=== PATIENT | female | born 1965 | race African-American/Black ===

== ENCOUNTER → 2017-05-10 | Outpatient (CLI) | payer MEDICAID ==
--- NOTE | 2017-05-10 08:31 | RAD ---
History: Left knee pain. Osteoarthritis. Exam: Three-view series of the left knee joint demonstrates moderate to severe tricompartmental knee joint osteoarthritis, most severe in the medial knee compartment. There is no evidence for acute frac ture or lytic bony lesion. No significant knee joint effusion is seen. No intra-articular loose fatimah s or focal joint erosions are observed. No other abnormalities are identified. Impression: Moderate to severe tricompartmental left knee joint osteoarthritis. Reported By:
== END | disposition home or self-care (01) | DRG 556 ==
LOC: RAD 07:24
PROVIDERS: ATTEND Specialist
DX: M25.562 Pain in left knee (principal); M17.12 Unilateral primary osteoarthritis, left knee
CPT/HCPCS: 73564

== ENCOUNTER → 2017-05-21 | Outpatient (CLI) | payer MEDICAID ==
--- NOTE | 2017-05-21 15:09 | MRI ---
MRI left knee without contrast. Indication: Chronic left knee pain. Comparison: Radiographs 05/10/2017 Technique: Multiplanar multi sequence MR images of the left knee were obtained without contrast. Findings: There is moderate tricompartmental degenerative arthrosis, worst in the medial femorotibial compartment. There is moderate to advanced chondrosis diffusely involving the medial femorotibial co mpartment. There is small horizontal tear of the lateral meniscal body extending to the free edge (fo r example image 22, series 801). There is free edge fraying of the medial meniscus, without discrete tear. The ACL, PCL, mcl, major lateral stabilizers, and extensor mechanism are intact. There is small joint effusion. No popliteal cyst. Impression: Moderate tricompartmental degenerative disease, worst in the medial femorotibial compartment. Probably degenerative horizontal tear of the lateral meniscal body. Medial meniscal free edge fraying . Small joint effusion. Reported By:
== END ==
LOC: RAD 13:39
PROVIDERS: ATTEND Orthopaedic Surgery
DX: M23.204 Derangement of unspecified medial meniscus due to old tear or injury, left knee (principal)
CPT/HCPCS: 73721

== ENCOUNTER → 2017-06-06 | Outpatient (CLI) | payer MEDICAID ==
[2017-06-06 14:54] LABS: BILIRUBIN,URINE NEGATIVE (NEGATIVE); BLOOD/HEMOGLOBIN,URINE NEGATIVE (NEGATIVE); GLUCOSE, URINE NEGATIVE (NEGATIVE); KETONES,URINE NEGATIVE (NEGATIVE); LEUKOCYTE ESTERASE ,URINE NEGATIVE (NEGATIVE); NITRITES,URINE NEGATIVE (NEGATIVE); PROTEIN,URINE NEGATIVE (NEGATIVE); UROBILINOGEN,URINE NORMAL (NORMAL)
[2017-06-06 14:56] LABS: BASOPHILS % (AUTO) 0.4 % (0.2-1.0); EOSINOPHILS # (AUTO) 0.2 x10^3/uL (0.0-0.2); EOSINOPHILS % (AUTO) 2.8 % (0.9-2.9); HEMOGLOBIN 12.1 g/dL (12.0-16.0); LYMPHOCYTES # (AUTO) 2.4 X10^3/uL (1.3-2.9); LYMPHOCYTES % (AUTO) 43.4 % (21.0-51.0); MEAN CORPUSCULAR HEMOGLOBIN 30.7 pg (27.0-34.0); MEAN CORPUSCULAR HGB CONC 34.6 g/dL (33.0-35.0); MEAN CORPUSCULAR VOLUME 88.7 fL (80.0-100.0); MEAN PLATELET VOLUME 7.4 fL (7.4-11.0); MONOCYTES # (AUTO) 0.5 x10^3/uL (0.3-0.8); MONOCYTES % (AUTO) 8.7 % (0.0-13.0); NEUTROPHILS # (AUTO) 2.5 x10^3/uL (2.2-4.8); NEUTROPHILS % (AUTO) 44.7 % (42.0-75.0); PLATELET COUNT 298 X10^3/uL (150.0-450.0); RED BLOOD COUNT 3.95 X10^6/uL (3.5-5.4); RED CELL DISTRIBUTION WIDTH 13.3 % (11.6-16.5); WHITE BLOOD COUNT 5.5 X10^3/uL (3.6-10.0)
--- NOTE | 2017-06-06 14:57 | RAD ---
HISTORY: Preoperative exam for knee surgery Study: Two views the chest Comparison: None Findings: The patient is slightly rotated. The cardiac silhouette is unremarkable. The lungs are clear withou t focal infiltrate or effusion. The aortic knob is partially calcified. Postoperative changes of th e cervical spine are noted. IMPRESSION: 1. No acute cardiopulmonary disease. Reported By:
[2017-06-06 14:59] LABS: APPEARANCE,URINE CLEAR (CLEAR); COLOR,URINE YELLOW (YELLOW); RBC,URINE 0-2 /HPF (NEGATIVE)
[2017-06-06 15:00] LABS: BACTERIA,URINE 1+ /HPF (NEGATIVE); SQUAMOUS EPITHELIAL CELL,UR RARE /HPF (NEGATIVE)
[2017-06-06 15:11] LABS: ALANINE AMINOTRANSFERASE 25 Units/L (12-78); ALBUMIN 3.9 g/dL (3.4-5.0); ALKALINE PHOSPHATASE 85 Units/L (46-116); ASPARTATE AMINO TRANSFERASE 16 Units/L (15-37); BLOOD UREA NITROGEN 10 mg/dL (7-18); CALCIUM 9.1 mg/dL (8.5-10.1); CARBON DIOXIDE 32.7 mmol/L (21-32); CHLORIDE 103 mmol/L (98-107); CREATININE 0.95 mg/dL (0.55-1.02); SODIUM 141 mmol/L (136-145); TOTAL PROTEIN 8.2 g/dL (6.4-8.2); eGFR BLACK RACES > 60 (>60); eGFR NON BLACK RACES > 60 (>60)
[2017-06-06 16:14] LABS: ERYTHROCYTE SEDIMENTATION RATE 4 MM/HOUR (0-20)
== END ==
LOC: LAB 14:11
PROVIDERS: ATTEND Orthopaedic Surgery
DX: Z01.818 Encounter for other preprocedural examination (principal); Z79.899 Other long term (current) drug therapy; Z11.8 Encounter for screening for other infectious and parasitic diseases; Z01.811 Encounter for preprocedural respiratory examination; Z01.810 Encounter for preprocedural cardiovascular examination; M23.204 Derangement of unspecified medial meniscus due to old tear or injury, left knee
CPT/HCPCS: 36415; 71046; 80053; 81001; 85025; 85652; 86140; 87640; 87641; 93005; 93010

== ENCOUNTER 2017-06-12 07:00 | Day surgery (SDC) | payer MEDICAID ==
[2017-06-12] MEDS: D5 LR 1000 ML 1,000 ML IV ONE ×2 (07:28→08:00)
[2017-06-12] MEDS ORDERED: XYLOCAINE 1% and EPINEPHRINE 1:100,000 ONE (07:35)
[2017-06-12] MEDS ORDERED: MARCAINE 0.25% INJ ONE (07:35)
[2017-06-12] MEDS ORDERED: NS IRRIGATION 3000 ML 3,000 ML IR ONE ×4 (08:07)
[2017-06-12] MEDS: ANCEF 1 GM IV PREMIX* 1 GM/50 ML BAG IV ONE ×2 (08:07→09:04)
[2017-06-12] MEDS: BACTROBAN OINT ONE ×2 (08:10→09:42)
[2017-06-12] MEDS ORDERED: ADRENALINE CHL INJ ONE (08:11)
[2017-06-12] MEDS ORDERED: DILAUDID INJ ONE (08:35)
[2017-06-12] MEDS ORDERED: FENTANYL INJ 100 mcg ONE ×2 (08:36→09:32)
[2017-06-12] MEDS ORDERED: DECADRON INJ ONE (09:36)
[2017-06-12] MEDS ORDERED: NS 1000 ML 1,000 ML ONE (09:37)
[2017-06-12] MEDS ORDERED: NS IRRIGATION 1000 ML 1,000 ML IR ONE ×4 (10:03→10:14)
[2017-06-12] MEDS ORDERED: KENALOG INJ 40 MG IM ONE (10:21)
[2017-06-12] MEDS ORDERED: ZOFRAN INJ 4 MG VIAL IVP PRN (10:49)
[2017-06-12] MEDS ORDERED: BENADRYL INJ 50 MG VIAL IVP PRN (10:49)
[2017-06-12] MEDS ORDERED: PHENERGAN INJ 25 MG IVP PRN (10:49)
[2017-06-12] MEDS ORDERED: REGLAN INJ 10 MG VIAL IVP PRN (10:49)
[2017-06-12] MEDS ORDERED: DILAUDID INJ IVP PRN (10:49)
[2017-06-12] MEDS ORDERED: NORCO 5/325 MG TAB PO PRN (11:03)
[2017-06-12] MEDS: DILAUDID INJ ONE ×2 (11:05→11:10)
[2017-06-12 12:25] VITALS: BP 106/63
[2017-06-12] MEDS ORDERED: EPHEDRINE SULFATE INJ ONE (15:35)
[2017-06-12] MEDS ORDERED: DIPRIVAN VIAL ONE (15:35)
[2017-06-12] MEDS ORDERED: VERSED ONE (15:35)
[2017-06-12] MEDS ORDERED: SUPRANE IN ONE (15:35)
[2017-06-12] MEDS ORDERED: LTA KIT LIDOCAINE 4% ONE (15:35)
[2017-06-12] MEDS ORDERED: QUELICIN (OR ANECTINE) ONE (15:35)
[2017-06-12] MEDS ORDERED: ZOFRAN INJ 4 MG VIAL ONE (15:35)
[2017-06-12] MEDS ORDERED: XYLOCAINE 2 % (PLAIN) ONE (15:35)
--- NOTE | 2017-06-16 13:12 | OR.GENERIC ---
Post-Op Note Generic - Post-Op Note Operative Report: PREOPERATIVE DIAGNOSIS: Left knee medial and lateral meniscal tear and chondromalacia of the patella. POSTOPERATIVE DIAGNOSIS: left knee 1. Posterior horn tear medial meniscus 2. Lateral meniscus complex body tear 2. Chondromalacia changes medial and patellofemoral compartments. PROCEDURE- Left knee arthroscopic partial medial And lateral meniscectomy. Left knee arthroscopic chondroplasty ANESTHESIA: General TOURNIQUET TIME: 45 minutes. BLOOD LOSS: Minimal. SPECIMEN: None. INDICATION- patient is a 51-year-old female who has been dealing with painful knee for months to almost a year now. She has been treated with conservative management without much success. He saw me in my office and medial lateral meniscal tear was suspected and an MRI waordered. MRI revealed medial and lateral meniscal tear. Patient was taken through the natural history and the treatment options. patient opted for a left knee arthroscopic surgery. The benefits and risks involved with discussed with her As well as the . postoperative period was also explained in detail. Complications including but not limited to infection, neurovascular damage, compartment syndrome, implant breakage, localization of osteoarthritis of the knee, persistence of pain, stiffness of the left knee, need for further procedures in the future were explained to them in detail. They verbalized and reported understood. PREOPERATIVE- Patient and the family were met in the preoperative holding area. Consent was obtained again. Left limb was marked. patient was met by the movie machine operator. Patient also got the appropriate antibiotic. PROCEDURE: The patient was brought down to the operating room and transferred from a hospital stretcher to the operating table. General anesthesia was induced and a successful endotracheal intubation was completed. the patient was placed in supine position and the left tourniquet was applied but was not i Inflated after appropriate padding. The right lower limb was placed in a well-leg wyatt. The bottom of the table was lowered to create 90 of flexion on on the left side. examination of the left knee was completed under a Anesthesia. nno gross instability was noted.A thigh post was applied. the left lower limb was prepped and draped. A proximal thigh tourniquet was inflated and an Esmarch bandage was used to exsanguinate the limb. The tourniquet was then inflated to approximately 100 to 150 mm of mmHg above systolic pressure. The surface landmarks were marked and the proposed lateral portal was marked. The posterior medial portal was also marked. The portals were infiltrated with local local anesthetic. An 11-blade stab incision was made along the anterolateral aspect for the anterolateral portal. A [place] trocar was then inserted and the arthroscope was then introduced. Once it was confirmed to be within the joint proper, the knee was distended with sterile saline solution. A systematic tour about the knee was performed beginning in the suprapatellar pouch, followed by the patellofemoral region, lateral gutter, posterolateral corner, and then the lateral compartment. Next, the intracondylar notch region was examined and finally, the medial compartment and medial gutter. synovitis was noted in the suprapatellar pouch. No foreign bodies were noticed in the suprapatellar pouch. Grade 3 chondromalacia changes seen on the undersurface of the patella on both the medial as well as the lateral facets. fibrillations hanging from the undersurface of were noted. Correspondingly the trochlea showed grade 2 chondromalacia changes as well as fibrillations. No obvious complete cartilage was noticed. The medial gutter was visualized and was negative for any foreign bodies. The medial compartment was visualized. Grade 2 chondromalacia changes seen in the distal femur as well as proximal tibial surfaces. The knee was brought into extension and valgus stress applied to visualize the posterior horn. A posterior horn tear was noted. A spinal needle was advanced from the [place] medial portal and was confirmed at the posterior horn tear would be accessed through the portal. Medial portal established after making a skin incision with a stab #11 knife. A probe passed through the medial portal and the posterior horn of medial meniscus was probed. It was complex tear of the posterior horn which was in the white white region and was not amenable to repair. An up cutting meniscotome was passed through the medial portal and partial medial meniscectomy completed. A shaver was passed through the medial portal and the edges of the meniscus were smoothened. The probe was again passed through the medial portal and the remaining meniscus was found to be extension of the tear. The rest of the meniscus was probed and was found to be devoid of any significant tears. There was fraying of the medial surface of the medial meniscal body. This was again smoothed and shaved down with a shaver. The intracondylar notch was examined and intact anterior and posterior cruciate ligaments These were tested with a probe and found to be competent without any tears. Now the knee was placed in the [id number] position to open up the lateral compartment. Grade 2 chondromalacia changes seen in the llateral compartment without any copious full-thickness cartilage loss. There was a tear which was noted in the body of the lateral meniscus. It was probed and found to be a complex tear in the white white region and was found to be repairable. His right cutting meniscotome was passed through the portal and partial meniscectomy was completed. A shaver was used to smooth and the rest of the meniscus. Again the remaining meniscus was probed and found to be stable with out any obvious tear or extension. The attention was directed to the patellofemoral compartment now. The knee was brought into extension and the shaver was brought in brought in through the medial portal. The fibrillation under the patella was smoothened th the shaver. The arthroscope was removed from the lateral compartment and was placed into the medial portal, and again, a tour of the knee was made this time visualizing it from the medial side and with the arthroscopy probe placed at the lateral portal. There was no further pathology identified. There was no evidence of remaining loose body or other abnormality. All instruments were eventually able to be removed with no evidence of any breakage. The arthroscopy portals were reapproximated using 2-0 nylon in interrupted fashion. Prior to the removal of the arthroscope, 0.5% Marcaine and Astramorph were distilled into the knee joint before closure. The tourniquet was released. There was no significant bleeding. The wounds were dressed with sterile bandages and a compression wrap from the toes to the mid thigh was placed. The patient was transferred off of the operating table back to a hospital stretcher and taken to the recovery room in fair condition. There was no evidence of any vascular deficit. As the spinal was still in place, we could not fully assess the neurologic status. POSTOPERATIVE PLAN: The patient will be permitted weightbearing as tolerated and is encouraged to frequently flex and extend the knee as well as her ankle. Crutches will be provided for her if she is unable to ambulate without the use of these assistive devices.physical therapy was in the recovery room teaching the patient walking with the help of assistive devices. Appropriate oral analgesics and oral antiinflammatory medications will be provided for the patient. The patient was instructed on ice and elevation to the limb. She will follow up in my office in approximately 6-10 days for postoperative consultation, wound examination, suture removal, and institution of more formalized physical therapy.
== END 2017-06-12 12:17 | disposition home or self-care (01) ==
LOC: SURG1 07:00
PROVIDERS: ATTEND Orthopaedic Surgery
PROC: 0SBD4ZZ Excision of Left Knee Joint, Percutaneous Endoscopic Approach (ICD-10-PCS; principal; 2017-06-12 08:30)
DX: S83.242A Other tear of medial meniscus, current injury, left knee, initial encounter (principal); S83.272A Complex tear of lateral meniscus, current injury, left knee, initial encounter; X58.XXXA Exposure to other specified factors, initial encounter; M22.42 Chondromalacia patellae, left knee
CPT/HCPCS: 86431; 87070; 87075; 88112; 88173; 89051; 89060; A4222; S0020; J0170; J0330; J0690; J1100; J1170; J2001; J2250; J2405; J2550; J3010; J3301; J3490; J7120